=== PATIENT | male | born 1980 | race Two or more races ===

== ENCOUNTER → 2021-04-12 | Emergency (ER) | payer BC, OTHER ==
[~2021-04-12] VITALS: Ht 188 cm; Wt 99.8 kg
[~2021-04-12] MED LIST: CYCL10TA9 PO; CYCLOBENZAPRINE 10 MG TABLET ONE; HYDR-4303 PO; HYDROCODONE/APAP 5/325MG TABLET ONE; IBUP-1955 PO
[2021-04-12 12:07] VITALS: BP 152/92
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
[2021-04-12] MEDS: HYDROCODONE/APAP 5/325MG TABLET PO ONE (12:26)
[2021-04-12] MEDS: CYCLOBENZAPRINE 10 MG TABLET PO ONE (12:26)
--- NOTE | 2021-04-12 12:28 | NUR ---
RADIOLOGY AT BEDSIDE
--- NOTE | 2021-04-12 14:15 | NUR ---
PT GIVEN CRUTCHES AND TAUGHT HOW TO PROPERLY USE THEM
--- NOTE | 2021-04-12 14:22 | NUR ---
Patient discharged to home in stable condition. Written and verbal after care instructions given. Patient verbalizes understanding of instruction.
== END | disposition home or self-care (01) ==
LOC: ER 11:58
DX: S76.012A Strain of muscle, fascia and tendon of left hip, initial encounter (principal); X58.XXXA Exposure to other specified factors, initial encounter; Y93.89 Activity, other specified; Y92.89 Other specified places as the place of occurrence of the external cause; Y99.8 Other external cause status
CPT/HCPCS: 73502